=== PATIENT | female | born 1980 | race Caucasian/White ===

== ENCOUNTER 2021-10-23 15:37 | Outpatient (CLI) | payer MEDICARE, MEDICAID, SELFPAY ==
--- NOTE | ~2021-10-23 | XR_ITS ---
EXAMINATION: XR chest 2V EXAM DATE: 10/23/2021 16:10 INDICATION: HX OF Covid 19 Exposure [id number] Ago,Cough, shortness of breath since. TECHNIQUE: Frontal and lateral projections of the chest obtained and reviewed. There is no prior niall dy for comparison. FINDINGS: The lungs are clear. There are no pleural effusions. The cardiomediastinal silhouette is within normal limits. There is no pneumothorax suspected. Mild thoracic dextroscoliosis. IMPRESSION: Unremarkable chest x-ray exam. Reviewed, dictated and finalized at location A. TY DEPOSIT CLERK
== END 2021-10-23 15:38 | disposition home or self-care (01) ==
DX: R05.9 Cough, unspecified (principal); Z86.16 Personal history of COVID-19
CPT/HCPCS: 71046

== ENCOUNTER 2022-06-03 10:22 | Emergency (ER) | payer MEDICARE, MEDICAID, SELFPAY ==
[2022-06-03 10:32] VITALS: BP 144/84; PULSE 85; RESP 18; TEMP 37.4; O2SAT 100
[2022-06-03 10:35] VITALS: BP 144/84; PULSE 85; RESP 18; TEMP 37.4; O2SAT 100
--- NOTE | 2022-06-03 10:49 | ED.EAR ---
HPI - Ear Problem General Chief complaint: Ear Stated complaint: Ear Pain Time Seen by Provider: 06/03/22 10:49 Source: patient Mode of arrival: ambulatory Limitations: no limitations History of Present Illness HPI Narrative: 41-year-old female presents with complaint of pain to left ear for several days. States that she recently had a cold. Reports that nasal congestion is improving. Does take daily allergy medication. States that left ear has also been popping. No recent fevers. Had a Z-Humberto leftover at home that she took a few pills from with no improvement to left ear. No changes to hearing. All systems reviewed and negative except as noted above. Related Data Home Medications Medication Instructions Recorded Confirmed alprazolam 0.5 mg tablet mg 06/03/22 carisoprodol 350 mg tablet mg 06/03/22 celecoxib 200 mg capsule mg 06/03/22 ergocalciferol (vitamin D2) 1,250 06/03/22 mcg (50,000 unit) capsule famotidine 40 mg tablet mg 06/03/22 hydrocodone 5 mg-acetaminophen 325 tablet 06/03/22 mg tablet hydroxychloroquine 200 mg tablet mg PO 06/03/22 levothyroxine 175 mcg tablet mcg 06/03/22 methotrexate sodium 2.5 mg tablet mg 06/03/22 montelukast 10 mg tablet mg 06/03/22 pravastatin 80 mg tablet mg 06/03/22 prochlorperazine maleate 10 mg mg 06/03/22 tablet sucralfate 1 gram tablet 06/03/22 triamcinolone acetonide 0.1 % applic topical 06/03/22 topical cream valacyclovir 1 gram tablet mg 06/03/22 Allergies Allergy/AdvReac Type Severity Reaction Status Date / Time erythromycin base Allergy Intermediate Rash Verified 06/03/22 10:58 Penicillins Allergy Intermediate Rash Verified 06/03/22 10:58 ciprofloxacin AdvReac Intermediate Diarrhea Verified 06/03/22 10:56 clindamycin AdvReac Intermediate Diarrhea Verified 06/03/22 10:58 doxycycline AdvReac Intermediate Vomiting Verified 06/03/22 10:56 Review of Systems Review of Systems: CONSTITUTIONAL: Denies fever, chills, or sweats. EYES: Denies visual changes, redness, or discharge. ENT: Denies rhinorrhea, congestion, sore throat. Left ear pain. CARDIOVASCULAR: Denies chest pain, palpitations, or edema. RESPIRATORY: Denies cough or dyspnea. GASTROINTESTINAL: Denies abdominal pain, nausea, vomiting, or diarrhea. GENITOURINARY: Denies dysuria or hematuria. SKIN: Denies rash or itching. MUSCULOSKELETAL: Denies back pain, joint pain, or myalgia. NEUROLOGIC: Denies headache, numbness, or weakness. PSYCHIATRIC: Denies anxiety or depression. All other systems reviewed are negative, except as documented in HPI. PMFSH Comments At time of signature, agree with nursing past medical, surgical, social and family history. There is no relevant family history pertinent to the presenting complaint. Exam Narrative: GENERAL: This is a well-nourished, well-developed patient, in no apparent distress. HEAD: normocephalic, atraumatic. EYES: PERRL. Sclera clear/white. Vision is grossly intact. EARS: External ears normal, auditory canals clear and without drainage, right TM is normal. Left TM is mildly erythematous with cloudy fluid. NOSE: External nose normal. Clear nasal drainage, mild erythema to nares. THROAT: Mucous membranes moist, mild erythema to posterior pharynx with postnasal drainage. NECK: Neck supple, non-tender without lymphadenopathy, masses or thyromegaly. CARDIOVASCULAR: Regular rate and rhythm without murmurs, gallops, or rubs. RESPIRATORY: Clear to auscultation. Breath sounds equal bilaterally. No wheezes, rales, or rhonchi. SKIN: warm, Dry, intact with no suspicious lesions or rash, good texture and turgor. NEURO: awake, alert, and oriented to person, place and time. There were no obvious focal neurologic abnormalities. EXTREMITIES: No joint tenderness, effusion, or edema noted. Course Course Level of Care: Express Care Visit Vital Signs Vital signs: Vital Signs Temperature 37.4 C 06/03/22 10:32 Pulse Rate 85 06/03/22 10:32 Respir
== END 2022-06-03 11:04 | disposition home or self-care (01) ==
PROVIDERS: Emergency Provider Nurse Practitioner Family
DX: H65.02 Acute serous otitis media, left ear (principal); E78.00 Pure hypercholesterolemia, unspecified; K21.9 Gastro-esophageal reflux disease without esophagitis; M06.9 Rheumatoid arthritis, unspecified; E03.9 Hypothyroidism, unspecified; N80.9 Endometriosis, unspecified; F41.9 Anxiety disorder, unspecified
CPT/HCPCS: 99213; G0463

== ENCOUNTER 2022-12-31 14:46 | Outpatient (CLI) | payer MEDICARE, MEDICAID, SELFPAY ==
--- NOTE | ~2022-12-31 | XR_ITS ---
EXAM: XR hand LT min 3V, XR hand RT min 3V DATE: 12/31/2022 15:35 HISTORY: ON MTX RA, ACHILLES TENDONITIS . COMPARISON: 09/17/2005. FINDINGS: Normal mineralization. No fracture or dislocation. No lytic or blastic lesion. Extensive c arpal fusions in the left wrist. Joint space narrowing and subchondral cyst formation in the intercar pal articulations of the right wrist. Flattening of the right lunate may be secondary to arthritic or traumatic change. Arthritic changes in the bilateral distal radial ulnar joints, worse in the left w rist. Mild scattered joint space narrowing in several remaining joints of the hands including the rig ht second and third MCP joints, and multiple DIP and PIP joints of the fingers. No active erosion or periosteal change. Soft tissues within normal limits. IMPRESSION: Polyarticular arthritis of the hands, likely representing scattered secondary osteoarthri tic changes, overlying quiescent rheumatoid arthritis. Reviewed, dictated and finalized at location K. IMPRESSION: Polyarticular arthritis of the hands, likely representing scattered secondary osteoarthritic changes, overlying quiescent rheumatoid arthritis.
--- NOTE | ~2022-12-31 | XR_ITS ---
Left foot Technique: AP, oblique, and lateral views were obtained. Clinical History: Achilles tendinitis Findings: No acute fracture or dislocation is seen. There is hallux valgus with mild degenerative augusta nge at the first MTP joint. There is mild enthesopathic change at the Achilles tendon insertion. Impression: Mild enthesopathic change at the Achilles tendon insertion. Hallux valgus with mild degenerative change at the first MTP joint. Reviewed, dictated and finalized at location . Impression: Mild enthesopathic change at the Achilles tendon insertion. Hallux valgus with mild degenerative change at the first MTP joint.
--- NOTE | ~2022-12-31 | XR_ITS ---
Right foot Technique: AP, oblique, and lateral views were obtained. Clinical History: Achilles tendinitis Findings: No acute fracture or dislocation is seen. Osseous alignment is anatomic. Suspected joint sp fitz narrowing at the fifth MTP joint. Remaining joint spaces appear intact. There is mild enthesopath ic change at the Achilles tendon insertion. Impression: Mild enthesopathic change at the Achilles tendon insertion. Suspected joint space narrowing at the fifth MTP joint. Reviewed, dictated and finalized at location . Impression: Mild enthesopathic change at the Achilles tendon insertion. Suspected joint space narrowing at the fifth MTP joint.
--- NOTE | ~2022-12-31 | XR_ITS ---
EXAMINATION: XR chest 2V Exam Date/Time: 12/31/2022 15:20 CDT HISTORY: ON MTX RA, Comparison: 10/23/2021. RESULT: Lines, tubes, and devices: None. Lungs and pleura: Clear. Cardiomediastinal silhouette: Stable. Other: No acute osseous or upper abdominal finding. IMPRESSION: No acute cardiopulmonary process. Reviewed, dictated and finalized at location K.
== END 2022-12-31 14:47 | disposition home or self-care (01) ==
LOC: ANHLAB 14:57
DX: M06.89 Other specified rheumatoid arthritis, multiple sites (principal); M20.12 Hallux valgus (acquired), left foot
CPT/HCPCS: 71046; 73130; 73630